=== PATIENT | female | born 1990 | race Caucasian/White ===

== ENCOUNTER 2022-05-09 12:47 | Inpatient (IN) ==
[2022-05-09] MEDS ORDERED: PANTOPRAZOLE BOLUS/DRIP 1 EACH IV STA (12:55)
[2022-05-09] MEDS ORDERED: PANTOprazole 80 MG in DEXTROSE 5% 100 ML IV ONE (12:55)
[2022-05-09] MEDS ORDERED: SODIUM CHLORIDE 0.9% 1000ML 1,000 ML IV ONE ×2 (12:55→14:15)
[2022-05-09 13:24] LABS: Hematocrit (blood only) 53.6 % (37.0-47.0); Hemoglobin 19.2 g/dl (12.0-16.0); Mean Corpuscular Hemoglobin 31.6 pg (25.0-34.0); Mean Corpuscular Hgb Conc 35.8 g/dL (32.0-36.0); Mean Corpuscular Volume 88.2 fL (80.0-100.0); Platelet Count 160 K/uL (130-400); RDW Standard Deviation 41.1 fL (36.4-46.3); Red Blood Count 6.08 M/uL (4.20-5.40); White Blood Count 17.57 K/ul (4.8-10.8)
--- NOTE | 2022-05-09 13:26 | Emergency Department Note ---
Impression & Plan Nausea & vomiting, Abdominal pain, GI bleed, Acute hepatitis, Coagulopathy, Dehydration ED Provider Note ED Provider Note NAME: MYRIAM MORALES AGE:31 SEX: Female : 1990 ARRIVES VIA: EMS INFORMANT: Patient ED PROVIDER(s): Candida Garcia DO CHIEF COMPLAINT: HPI: This is a 31-year-old female brought in by EMS after [facility]all[facility] party contacted them due to concern for recurrent vomiting in the patient as well as florecita temesis. Patient states she began having vomiting and abdominal pain yesterday which continued into today. Patient denies any prior history of GERD, PUD, or any other GI problems. No prior EGD. Patient denies any use of aspirin or NSAIDs. Patient states she is not drink alcohol in several days. She states she has felt dizzy and lightheaded but has not passed out. EMS reports they had established an IV and given her 4 mg of Zofran when patient suddenly removed the IV. Patient complained of left-sided abdominal pain. She was tachycardic for EMS and blood pressures were fluctuating however EMS reported patient would not lay still. Patient states she had dark blood with a bowel movement this morning. No recent melena. PAST MEDICAL HISTORY:See Below PAST SURGICAL HISTORY:See Below FAMILY HISTORY:See Below SOCIAL HISTORY:See Below HOME MEDICATIONS:See Below ALLERGIES:See Below VITALS:See Below PHYSICAL EXAMINATION: GENERAL: alert, unwell appearing, well nourished, moderate distress, non-toxic, tearful and holding emesis bag EYE EXAM: normal conjunctiva, PERRL and EOM's grossly intact OROPHARYNX: no exudate, no erythema, lips, buccal mucosa, and tongue normal and mucous membranes are dry, no blood in the posterior oropharynx NECK: supple, no nuchal rigidity, no adenopathy, non-tender LUNGS: Clear to auscultation. Normal chest wall mechanics, no w/r/r HEART: no murmurs, S1 normal and S2 normal ABDOMEN: abdomen soft, generalized discomfort with palpation, normo-active bowel sounds, no masses, no rebound or guarding. BACK: Back is symmetrical on inspection and there is no deformity, no midline tenderness, no CVA tenderness. SKIN: no rashes, petechiae, orbruising UPPER EXTREMITIES: upper extremities are grossly normal. FROM, nml pulses b/l. LOWER EXTREMITIES: No pitting edema. FROM, nml pulses b/l. NEURO EXAM: Normal sensorium, cranial nerves II-XII grossly intact, normal speech, no facial droop,nogross weakness of arms, no gross weakness of legs. Gross sensation intact. No ataxia. Vital Signs: reviewed and remarkable Differential Diagnosis: Differential diagnosis includes etiologies such as AVM, coagulopathy, colitis, inflammatory bowel disease, malignancy, Cira-Ontiveros tear, esophagitis, peptic ulcer disease, variceal bleed, gastritis, as well as others were entertained. MEDICAL DECISION MAKING: This is a 31-year-old female who presents emergency department via EMS due to concern for recurrent nausea and vomiting, hematemesis, and abdominal pain. Patient was afebrile although tachycardic, other vital signs stable. Labs drawn and sent, IV established, EKG performed interpreted by me at bedside, patient placed on telemetry. Patient started on IV fluids and given medication for nausea. Patient started on Protonix drip due to concern for hematemesis which is obvious in the emesis bag patient came in with. Patient sent for CT of the abdomen pelvis due to concern for abdominal pain with GI bleed. Patient denied any recent alcohol use although does have a history of alcohol abuse as well as substance abuse. Patient noted to have family elevated LFTs as well as an elevated INR. She was given 5 mg of IV vitamin K additionally. IV fluids continued and heart rate did improve. Patient updated on all results and need for additional inpatient treatment. Tylenol, lactic acid, and hepatitis panel added. It is unclear if her acute hepatitis is due to alcohol, substance abuse, or other undetermined pathology at this time. Consultation(s): 1445: Discussed with Dr. Loving, [facility] hospitalist service. ER Treatment Provided: See below 1420: Patient updated at bedside on results. She denies any history of liver problems or hepatitis. Denies any IV drug abuse. Patient states she did use coke earlier in the week. She states no alcohol since last weekend. No recent use of Tylenol. States she is not currently taking any medications. No other OTC meds, supplements, or vitamins. Diagnostics Interpreted By Me: -ECG: Normal sinus at 99, normal axis, normal QRS and QTc, no acute ST/T wave changes -Cardiac Monitoring: An order was placed for continuous cardiac monitoring. The monitor shows a rate of 112 with sinus tachycardia rhythm. -Laboratory studies: As stated above and show below. -Imaging studies: [] Triage Nursing Note Reviewed Prior/Outside Records Reviewed - Procedures: [] Critical Care: Critical care of 39 min performed to assess and manage high likelihood of life- threatening liver failure, involving labs and imaging performed with assessment to evaluate vomiting/GI bleed/abdominal pain diagnosis with frequent reassessment. This time includes bedside time, treatment discussions with patient/family/consultants, documentation time and excludes procedure time. Past Med/Surg History Medical History (Updated 05/10/22 @ 18:06 by Candida Garcia DO) Alcohol abuse Anxiety Bipolar 1 disorder Cocaine use Depression PCOS (polycystic ovarian syndrome) Post traumatic stress disorder (PTSD) Surgical History History of loop electrical excision procedure (LEEP) Family History Other Depression Social History Smoking Status: Current every day smoker Cigarettes Per Day: 10; Do You Dip or Chew Tobacco: No; Hx Alcohol Use: Yes Alcohol type: hard liquor Hx Substance Use: Yes Last Used Substance: Days (ago) Last Used Substance Other:: 05/02/22 Preferred Language: Venezuelan Communication Ability: Effective Principal Administrative Clerk Required: No Beliefs That Will Affect Care: None Current Living Situation: Family Current Living Situation Comment: lives with sister Feels Safe at Home: No Any Concerns about Your Family Situation: Yes Would You Like to Speak to Someone About Your Situation: Yes Safety Concerns: Afraid for Self Assistive Devices: None Allergies Allergies Allergy/AdvReac Type Severity Reaction Status Date / Time No Known Allergies Allergy Mild Unverified 05/09/22 14:38 BEE STINGS Allergy Mild UNKNOWN Uncoded 05/09/22 14:38 CODIENE AdvReac Mild NAUSEA Uncoded 05/09/22 14:38 Home Meds Home Medications Medication Instructions Recorded Confirmed No Known Home Medications 05/09/22 05/09/22 Results & Data (ED) Vital Signs Vital Signs - 24 hr 05/09/22 12:49 05/09/22 13:15 05/09/22 14:45 Temperature 37.2 C Temperature Source Axillary Pulse Rate 113 H 105 H Pulse Rate [Apical] 115 H Pulse Rhythm Regular Pulse Rhythm [Apical] Pulse Strength [Apical] Respiratory Rate 18 21 Respiratory Effort / Characteristics Non-Labored Spontaneous Non-Labored Spontaneous Respiratory Depth Normal Normal Respiratory Pattern Regular Blood Pressure 98/67 L Blood Pressure [Left Arm] 144/80 H Blood Pressure Mean 77 Blood Pressure Mean [Left Arm] 101 Pulse Oximetry 100 97 Oxygen Delivery Method Room Air Room Air Sepsis Recent Fever Within 48 Hours No Sepsis New/Unexplained Change in Mental Status No Sepsis Action Taken by Nursing Physician Notified 05/09/22 14:47 Temperature Temperature Source Pulse Rate Pulse Rate [Apical] 120 H Pulse Rhythm Pulse Rhythm [Apical] Regular Pulse Strength [Apical] Normal Respiratory Rate 17 Respiratory Effort / Characteristics Non-Labored Spontaneous Respiratory Depth Normal Respiratory Pattern Regular Blood Pressure Blood Pressure [Left Arm] 117/77 Blood Pressure Mean Blood Pressure Mean [Left Arm] 90 Pulse Oximetry 100 Oxygen Delivery Method Room Air Sepsis Recent Fever Within 48 Hours Sepsis New/Unexplained Change in Mental Status Sepsis Action Taken by Nursing Laboratory Data 05/09/22 13:01 05/09/22 13:01 Lab Results 05/09/22 05/09/22 05/09/22 Range/Units 13:01 13:01 13:01 WBC 17.57 H (4.8-10.8) K/ul RBC 6.08 H (4.20-5.40) M/uL Hgb 19.2 H (12.0-16.0) g/dl Hct 53.6 H (37.0-47.0) % MCV 88.2 (80.0-100.0) fL MCH 31.6 (25.0-34.0) pg MCHC 35.8 (32.0-36.0) g/dL RDW Std Deviation 41.1 (36.4-46.3) fL RDW Coeff of Jess 13.0 (11.5-14.5) % Plt Count 160 (130-400) K/uL MPV 11.0 (9.4-12.4) fL Immature Gran % (Auto) 0.5 % Neut % (Auto) 87.7 % Lymph % (Auto) 1.1 % Clare % (Auto) 1.2 % Eos % (Auto) 9.0 % Baso % (Auto) 0.5 % Neut # (Auto) 15.41 H (1.40-6.50) K/uL Lymph # (Auto) 0.20 L (1.2-3.4) K/uL Clare # (Auto) 0.21 (0.11-0.59) K/uL Eos # (Auto) 1.58 H (0-0.50) K/uL Baso # (Auto) 0.08 (0-0.2) K/uL Immature Gran # (Auto) 0.09 (0.01-0.20) K/uL Toxic Vacuolation 1+ Polychromasia 1+ Echinocytes 3+ PT 38.6 H (9.0-12.0) Seconds INR 3.9 H (0.9-1.1) Sodium 136 (136-145) mmol/L Potassium 4.0 (3.5-5.1) mmol/L Chloride 99 (98-107) mmol/L Carbon Dioxide 20 L (21-32) mmol/L Anion Gap 17 H (3-11) BUN 18 (6-23) mg/dl Creatinine 0.96 (0.6-1.2) mg/dl Est Cr Clr Drug Dosing 109.0 ml/min Est GFR ( Amer) 91.3 ml/min Est GFR (Non-Af Amer) 78.8 ml/min BUN/Creatinine Ratio 18.8 (10-20) Glucose 107 H (70-99(Fasting)) mg/dl Lactate (0.4-2.0) mmol/L Calcium 9.8 (8.5-10.1) mg/dl Magnesium 2.1 (1.7-2.4) mg/dl Total Bilirubin 6.8 H (0.2-1.0) mg/dl AST 9935 H (13-39) U/L ALT > 2500 H (7-52) U/L Alkaline Phosphatase 146 H (34-104) U/L Troponin I High Sens 20.6 H (0-14) pg/ml Total Protein 8.1 (6.0-8.3) gm/dl Albumin 4.8 (3.4-5.0) gm/dl Globulin 3.3 (2.5-4.0) gm/dl Albumin/Globulin Ratio 1.5 (0.9-2) Lipase 35 (11-82) U/L Procalcitonin (0-0.5) ng/ml HCG, Qual (Negative) Acetaminophen (10-30) ug/ml Ethyl Alcohol mg/dL (<10.0) mg/dl SARS-CoV-2, RNA, NAAT (NEGATIVE) Blood Type Antibody Screen 05/09/22 05/09/22 05/09/22 Range/Units 13:01 13:24 14:13 WBC (4.8-10.8) K/ul RBC (4.20-5.40) M/uL Hgb (12.0-16.0) g/dl Hct (37.0-47.0) % MCV (80.0-100.0) fL MCH (25.0-34.0) pg MCHC (32.0-36.0) g/dL RDW Std Deviation (36.4-46.3) fL RDW Coeff of Jess (11.5-14.5) % Plt Count (130-400) K/uL MPV (9.4-12.4) fL Immature Gran % (Auto) % Neut % (Auto) % Lymph % (Auto) % Clare % (Auto) % Eos % (Auto) % Baso % (Auto) % Neut # (Auto) (1.40-6.50) K/uL Lymph # (Auto) (1.2-3.4) K/uL Clare # (Auto) (0.11-0.59) K/uL Eos # (Auto) (0-0.50) K/uL Baso # (Auto) (0-0.2) K/uL Immature Gran # (Auto) (0.01-0.20) K/uL Toxic Vacuolation Polychromasia Echinocytes PT (9.0-12.0) Seconds INR (0.9-1.1) Sodium (136-145) mmol/L Potassium (3.5-5.1) mmol/L Chloride (98-107) mmol/L Carbon Dioxide (21-32) mmol/L Anion Gap (3-11) BUN (6-23) mg/dl Creatinine (0.6-1.2) mg/dl Est Cr Clr Drug Dosing ml/min Est GFR ( Amer) ml/min Est GFR (Non-Af Amer) ml/min BUN/Creatinine Ratio (10-20) Glucose (70-99(Fasting)) mg/dl Lactate 5.4 H* (0.4-2.0) mmol/L Calcium (8.5-10.1) mg/dl Magnesium (1.7-2.4) mg/dl Total Bilirubin (0.2-1.0) mg/dl AST (13-39) U/L ALT (7-52) U/L Alkaline Phosphatase (34-104) U/L Troponin I High Sens (0-14) pg/ml Total Protein (6.0-8.3) gm/dl Albumin (3.4-5.0) gm/dl Globulin (2.5-4.0) gm/dl Albumin/Globulin Ratio (0.9-2) Lipase (11-82) U/L Procalcitonin (0-0.5) ng/ml HCG, Qual Negative (Negative) Acetaminophen (10-30) ug/ml Ethyl Alcohol mg/dL (<10.0) mg/dl SARS-CoV-2, RNA, NAAT (NEGATIVE) Blood Type Cancelled Antibody Screen Cancelled 05/09/22 05/09/22 05/09/22 Range/Units 14:13 14:13 14:14 WBC (4.8-10.8) K/ul RBC (4.20-5.40) M/uL Hgb (12.0-16.0) g/dl Hct (37.0-47.0) % MCV (80.0-100.0) fL MCH (25.0-34.0) pg MCHC (32.0-36.0) g/dL RDW Std Deviation (36.4-46.3) fL RDW Coeff of Jess (11.5-14.5) % Plt Count (130-400) K/uL MPV (9.4-12.4) fL Immature Gran % (Auto) % Neut % (Auto) % Lymph % (Auto) % Clare % (Auto) % Eos % (Auto) % Baso % (Auto) % Neut # (Auto) (1.40-6.50) K/uL Lymph # (Auto) (1.2-3.4) K/uL Clare # (Auto) (0.11-0.59) K/uL Eos # (Auto) (0-0.50) K/uL Baso # (Auto) (0-0.2) K/uL Immature Gran # (Auto) (0.01-0.20) K/uL Toxic Vacuolation Polychromasia Echinocytes PT (9.0-12.0) Seconds INR (0.9-1.1) Sodium (136-145) mmol/L Potassium (3.5-5.1) mmol/L Chloride (98-107) mmol/L Carbon Dioxide (21-32) mmol/L Anion Gap (3-11) BUN (6-23) mg/dl Creatinine (0.6-1.2) mg/dl Est Cr Clr Drug Dosing ml/min Est GFR ( Amer) ml/min Est GFR (Non-Af Amer) ml/min BUN/Creatinine Ratio (10-20) Glucose (70-99(Fasting)) mg/dl Lactate (0.4-2.0) mmol/L Calcium (8.5-10.1) mg/dl Magnesium (1.7-2.4) mg/dl Total Bilirubin (0.2-1.0) mg/dl AST (13-39) U/L ALT (7-52) U/L Alkaline Phosphatase (34-104) U/L Troponin I High Sens (0-14) pg/ml Total Protein (6.0-8.3) gm/dl Albumin (3.4-5.0) gm/dl Globulin (2.5-4.0) gm/dl Albumin/Globulin Ratio (0.9-2) Lipase (11-82) U/L Procalcitonin 16.18 H (0-0.5) ng/ml HCG, Qual (Negative) Acetaminophen (10-30) ug/ml Ethyl Alcohol mg/dL < 10.0 (<10.0) mg/dl SARS-CoV-2, RNA, NAAT (NEGATIVE) Blood Type A Positive Antibody Screen NEGATIVE 05/09/22 05/09/22 Range/Units 14:15 15:17 WBC (4.8-10.8) K/ul RBC (4.20-5.40) M/uL Hgb (12.0-16.0) g/dl Hct (37.0-47.0) % MCV (80.0-100.0) fL MCH (25.0-34.0) pg MCHC (32.0-36.0) g/dL RDW Std Deviation (36.4-46.3) fL RDW Coeff of Jess (11.5-14.5) % Plt Count (130-400) K/uL MPV (9.4-12.4) fL Immature Gran % (Auto) % Neut % (Auto) % Lymph % (Auto) % Clare % (Auto) % Eos % (Auto) % Baso % (Auto) % Neut # (Auto) (1.40-6.50) K/uL Lymph # (Auto) (1.2-3.4) K/uL Clare # (Auto) (0.11-0.59) K/uL Eos # (Auto) (0-0.50) K/uL Baso # (Auto) (0-0.2) K/uL Immature Gran # (Auto) (0.01-0.20) K/uL Toxic Vacuolation Polychromasia Echinocytes PT (9.0-12.0) Seconds INR (0.9-1.1) Sodium (136-145) mmol/L Potassium (3.5-5.1) mmol/L Chloride (98-107) mmol/L Carbon Dioxide (21-32) mmol/L Anion Gap (3-11) BUN (6-23) mg/dl Creatinine (0.6-1.2) mg/dl Est Cr Clr Drug Dosing ml/min Est GFR ( Amer) ml/min Est GFR (Non-Af Amer) ml/min BUN/Creatinine Ratio (10-20) Glucose (70-99(Fasting)) mg/dl Lactate (0.4-2.0) mmol/L Calcium (8.5-10.1) mg/dl Magnesium (1.7-2.4) mg/dl Total Bilirubin (0.2-1.0) mg/dl AST (13-39) U/L ALT (7-52) U/L Alkaline Phosphatase (34-104) U/L Troponin I High Sens (0-14) pg/ml Total Protein (6.0-8.3) gm/dl Albumin (3.4-5.0) gm/dl Globulin (2.5-4.0) gm/dl Albumin/Globulin Ratio (0.9-2) Lipase (11-82) U/L Procalcitonin (0-0.5) ng/ml HCG, Qual (Negative) Acetaminophen 17 (10-30) ug/ml Ethyl Alcohol mg/dL (<10.0) mg/dl SARS-CoV-2, RNA, NAAT NEGATIVE (NEGATIVE) Blood Type Antibody Screen Administered Medications Pantoprazole Sodium 40 mg/ (Dextrose) 100 mls @ 20 mls/hr IV Q5H [facility] Stop: 06/08/22 13:14 Last Admin: 05/10/22 14:59 Dose: 8 mg/hr, 20 mls/hr Documented By: Infusion: 05/10/22 14:59 Dose: 8 mg/hr, 20 mls/hr Documented By: MARIA VICTORIAS Admin: 05/10/22 11:02 Dose: 8 mg/hr, 20 mls/hr Documented By: Infusion: 05/10/22 10:02 Dose: 8 mg/hr, 20 mls/hr Documented By: MARIA VICTORIAS Admin: 05/10/22 05:02 Dose: 8 mg/hr, 20 mls/hr Documented By: Infusion: 05/10/22 04:27 Dose: 8 mg/hr, 20 mls/hr Documented By: JuanitoT Admin: 05/09/22 23:27 Dose: 8 mg/hr, 20 mls/hr Documented By: JuanitoT Infusion: 05/09/22 23:27 Dose: 8 mg/hr, 20 mls/hr Documented By: JuanitoT Admin: 05/09/22 20:11 Dose: 8 mg/hr, 20 mls/hr Documented By: Infusion: 05/09/22 19:05 Dose: 0 mg/hr, 0 mls/hr Documented By: Admin: 05/09/22 14:05 Dose: 8 mg/hr, 20 mls/hr Documented By: Piperacillin Sod/Tazobactam (Sod 4.5 gm/ Dextrose) 120 mls @ 30 mls/hr IV Q8H [facility]; Protocol Stop: 05/11/22 17:14 Last Admin: 05/10/22 16:51 Dose: 28.8 mls/hr Documented By: Infusion: 05/10/22 15:46 Dose: 0 mls/hr Documented By: MARIA VICTORIAS Admin: 05/10/22 10:00 Dose: 28.8 mls/hr Documented By: Infusion: 05/10/22 06:13 Dose: 0 mls/hr Documented By: Admin: 05/10/22 01:56 Dose: 30 mls/hr Documented By: Infusion: 05/09/22 21:45 Dose: 0 mls/hr Documented By: Admin: 05/09/22 17:28 Dose: 28.8 mls/hr Documented By: KELSEY Potassium Chloride/Sodium Chloride (Normal Saline W/20 Meq Kcl) 20 meq in 1,000 mls @ 125 mls/hr IV .Q8H JULIETTE; Protocol Stop: 06/09/22 07:59 Last Admin: 05/10/22 16:52 Dose: 125 mls/hr Documented By: Infusion: 05/10/22 16:52 Dose: 125 mls/hr Documented By: Admin: 05/10/22 09:00 Dose: 125 mls/hr Documented By: LESLIE Ondansetron HCl (Ondansetron Inj 2 Mg/Ml 2 Ml Vial) 4 mg IV Q6H PRN PRN Reason: Nausea Stop: 06/08/22 19:03 Last Admin: 05/10/22 07:35 Dose: 4 mg Documented By: Admin: 05/09/22 22:42 Dose: 4 mg Documented By: RAMONA Discontinued Medications Acetylcysteine (Acetylcysteine Iv 21 Hr Regimen (>40kg)) 1 each IV NOW STA; Protocol Stop: 05/09/22 19:33 Last Admin: 05/10/22 01:57 Dose: Not Given Documented By: RAMONA Sodium Chloride (Nss 1000ml) 1,000 mls @ 999 mls/hr IV .Q1H1M ONE Stop: 05/09/22 13:55 Last Infusion: 05/09/22 14:05 Dose: 0 mls/hr Documented By: Admin: 05/09/22 13:04 Dose: 999 mls/hr Documented By: KELSEY Pantoprazole Sodium (Protonix Bolus/Drip) 0 mls @ 1 mls/hr IV ONE STA Stop: 05/09/22 12:56 Last Admin: 05/09/22 14:04 Dose: Not Given Documented By: KELSEY Pantoprazole Sodium 80 mg/ (Dextrose) 120 mls @ 400 mls/hr IV NOW ONE Stop: 05/09/22 13:12 Last Infusion: 05/09/22 13:48 Dose: 0 mls/hr Documented By: Admin: 05/09/22 13:26 Dose: 400 mls/hr Documented By: Phytonadione 5 mg/ Dextrose 50.5 mls @ 101 mls/hr IV ONE ONE Stop: 05/09/22 14:34 Last Infusion: 05/09/22 15:23 Dose: 0 mls/hr Documented By: Admin: 05/09/22 14:42 Dose: 101 mls/hr Documented By: KELSEY Sodium Chloride (Nss 1000ml) 1,000 mls @ 999 mls/hr IV .Q1H1M ONE Stop: 05/09/22 15:15 Last Infusion: 05/09/22 16:28 Dose: 0 mls/hr Documented By: Admin: 05/09/22 15:20 Dose: 999 mls/hr Documented By: Cefepime HCl (Maxipime) 2,000 mg in 20 mls @ 5 mls/min IV NOW STA; Protocol Stop: 05/09/22 15:23 Last Admin: 05/09/22 15:48 Dose: Not Given Documented By: KELSEY Dextrose/Sodium Chloride (D5w And Nss) 1,000 mls @ 70 mls/hr IV .[id number] JULITETE Stop: 06/08/22 19:03 Last Infusion: 05/10/22 09:00 Dose: 0 mls/hr Documented By: Admin: 05/09/22 20:59 Dose: 70 mls/hr Documented By: RAMONA Acetylcysteine 10,000 mg/ (Dextrose) 1,050 mls @ 62.5 mls/hr IV ONCE ONE Stop: 05/10/22 17:47 Last Admin: 05/10/22 03:58 Dose: 62.5 mls/hr Documented By: RAMONA Acetylcysteine 15,000 mg/ (Dextrose) 275 mls @ 200 mls/hr IV ONCE ONE Stop: 05/09/22 21:37 Last Infusion: 05/09/22 23:12 Dose: 0 mls/hr Documented By: Admin: 05/09/22 20:59 Dose: 200 mls/hr Documented By: RAMONA Acetylcysteine 5,000 mg/ (Dextrose) 525 mls @ 125 mls/hr IV ONCE ONE Stop: 05/10/22 01:26 Last Infusion: 05/10/22 04:00 Dose: 0 mls/hr Documented By: Admin: 05/09/22 23:12 Dose: 125 mls/hr Documented By: RAMONA Vancomycin HCl 2,000 mg/ (Sodium Chloride) 540 mls @ 200 mls/hr IV NOW ONE; Protocol Stop: 05/09/22 23:41 Last Infusion: 05/10/22 01:04 Dose: 0 mls/hr Documented By: Admin: 05/09/22 20:59 Dose: 200 mls/hr Documented By: RAMONA Vancomycin HCl 1,250 mg/ (Sodium Chloride) 275 mls @ 200 mls/hr IV Q12H [facility]ULI[facility]TE; Protocol Stop: 05/10/22 12:00 Last Infusion: 05/10/22 11:22 Dose: 0 mls/hr Documented By: Admin: 05/10/22 09:18 Dose: 200 mls/hr Documented By: LESLIE Ioversol (Optiray 350 100ml) 94 ml IV ONCE ONE Stop: 05/09/22 13:53 Last Admin: 05/09/22 13:53 Dose: 94 ml Documented By: ISHMAEL Metoclopramide HCl (Metoclopramide Hcl Inj 5 Mg/Ml 2 Ml Vial) 5 mg IV ONE ONE Stop: 05/09/22 19:46 Last Admin: 05/09/22 19:35 Dose: 5 mg Documented By: CLARE Metoclopramide HCl (Metoclopramide Hcl Inj 5 Mg/Ml 2 Ml Vial) 5 mg IV ONE ONE Stop: 05/09/22 23:22 Last Admin: 05/09/22 23:27 Dose: 5 mg Documented By: RAMONA Ondansetron HCl (Ondansetron Inj 2 Mg/Ml 2 Ml Vial) 4 mg IV NOW STA Stop: 05/09/22 13:36 Last Admin: 05/09/22 13:43 Dose: 4 mg Documented By: Ondansetron HCl (Ondansetron Inj 2 Mg/Ml 2 Ml Vial) Confirm Administered Dose 4 mg .ROUTE .STK-MED ONE Stop: 05/09/22 13:36 Last Admin: 05/09/22 13:44 Dose: Not Given Documented By: KELSEY Ondansetron HCl (Ondansetron Inj 2 Mg/Ml 2 Ml Vial) Confirm Administered Dose 4 mg .ROUTE .K-MED ONE Stop: 05/09/22 16:43 Last Admin: 05/09/22 16:45 Dose: 4 mg Documented By: KELSEY Imaging Data Radiologist's Impression: Abdomen/Pelvis CT 05/09/22 12:55 CT OF THE ABDOMEN AND PELVIS WITH CONTRAST CLINICAL HISTORY: Gi bleed, LUQ pain COMPARISON STUDY: None. TECHNIQUE: Following IV administration of 94 mL of Optiray, axial images of the abdomen and pelvis were obtained from the lung bases to the proximal femurs. Images were reviewed in the axial, sagittal, and coronal planes. IV contrast was administered without complication. Automated exposure control was utilized for the study. A dose lowering technique was utilized adhering to the principles of ALARA. CT DOSE: 1020.55 mGy.cm FINDINGS: Lung bases are unremarkable. No pneumatosis, free air or portal venous gas is present. There is hepatic steatosis. No biliary or pancreatic ductal dilatation is present. Spleen, adrenal glands, kidneys and pancreas are normal. There is no peripancreatic or pericholecystic infiltration. There is no hydronephrosis. Subcentimeter left adrenal nodule is likely benign. The caliber and wall thickness of small and large bowel are normal. There is no evidence for a bowel obstruction. The appendix is normal. No intraluminal contrast is identified to suggest active GI bleed during this study. Intrauterine device is in place. Ovaries are unremarkable by CT. There is no lymphadenopathy. There is no ascites. There are no acute fractures. IMPRESSION: 1. No acute process within the abdomen or pelvis. 2. Hepatic steatosis. 3. Normal appendix. No bowel obstruction. No bowel wall thickening. ACT 112: Negative or not required by law. Electronically signed by: Kieran Ewing M.D. 05/09/2022 2:19 PM Discharge Plan Visit Data Chief Complaint: Vomiting Stated Complaint: VOMITING HEMATEMESIS ED Provider: Candida Garcia Discharge Problem: Nausea & vomiting, Abdominal pain, GI bleed, Acute hepatitis, Coagulopathy, Dehydration Patient Disposition: Admitted As Inpatient Discharge Instructions Interventions: ED Discharge Assessment Last Done: 05/09/22 19:04
[2022-05-09 13:27] LABS: Pregnancy Test, Serum Negative (Negative)
[2022-05-09 13:28] LABS: Anion Gap 17 (3-11); BUN Creatinine Ratio 18.8 (10-20); Blood Urea Nitrogen 18 mg/dl (6-23); Calcium 9.8 mg/dl (8.5-10.1); Carbon Dioxide 20 mmol/L (21-32); Chloride 99 mmol/L (98-107); Est GFR (African American) 91.3 ml/min; Est GFR (Non-African American) 78.8 ml/min; Glucose 107 mg/dl (70-99(Fasting)); Sodium 136 mmol/L (136-145)
[2022-05-09 13:30] LABS: Albumin Globulin Ratio 1.5 (0.9-2); Albumin Level 4.8 gm/dl (3.4-5.0); Alkaline Phosphatase 146 U/L (34-104); Bilirubin,Total 6.8 mg/dl (0.2-1.0); Globulin 3.3 gm/dl (2.5-4.0); Lipase 35 U/L (11-82); Magnesium 2.1 mg/dl (1.7-2.4); Total Protein 8.1 gm/dl (6.0-8.3)
[2022-05-09 13:34] LABS: Troponin I High Sensitivity 20.6 pg/ml (0-14)
[2022-05-09] MEDS ORDERED: ONDANSETRON INJ 2 MG/ML 2 ML VIAL ONE ×2 (13:35→16:42)
[2022-05-09] MEDS ORDERED: ONDANSETRON INJ 2 MG/ML 2 ML VIAL IV STA (13:35)
[2022-05-09 13:45] LABS: INR 3.9 (0.9-1.1); Prothrombin Time 38.6 Seconds (9.0-12.0)
[2022-05-09 13:49] LABS: Aspartate Aminotransferase 9935 U/L (13-39)
[2022-05-09 13:50] LABS: Alanine Aminotransferase > 2500 U/L (7-52)
[2022-05-09] MEDS ORDERED: OPTIRAY 350 100ml IV ONE (13:52)
[2022-05-09 13:53] LABS: Basophils # (auto) 0.08 K/uL (0-0.2); Basophils % (auto) 0.5 %; Echinocytes 3+; Eosinophils # (auto) 1.58 K/uL (0-0.50); Immature Granulocytes # (auto) 0.09 K/uL (0.01-0.20); Immature Granulocytes % (auto) 0.5 %; Lymphocytes % (auto) 1.1 %; Monocytes # (auto) 0.21 K/uL (0.11-0.59); Monocytes % (auto) 1.2 %; Neutrophils # (auto) 15.41 K/uL (1.40-6.50); Neutrophils % (auto) 87.7 %; Polychromasia 1+; Toxic Vacuolation 1+
[2022-05-09] MEDS ORDERED: PHYTONADIONE 5 MG in DEXTROSE 5% 50 ML IV ONE (14:05)
[2022-05-09] MEDS: PANTOprazole 40 MG in DEXTROSE 5% 100 ML IV SCH ×3 (14:05→23:27)
--- NOTE | 2022-05-09 14:22 | CT Scan Report ---
CT OF THE ABDOMEN AND PELVIS WITH CONTRAST CLINICAL HISTORY: Gi bleed, LUQ pain COMPARISON STUDY: None. TECHNIQUE: Following IV administration of 94 mL of Optiray, axial images of the abdomen and pelvis we re obtained from the lung bases to the proximal femurs. Images were reviewed in the axial, sagittal, and coronal planes. IV contrast was administered without complication. Automated exposure control wa s utilized for the study. A dose lowering technique was utilized adhering to the principles of ALARA . CT DOSE: 1020.55 mGy.cm FINDINGS: Lung bases are unremarkable. No pneumatosis, free air or portal venous gas is present. Ther e is hepatic steatosis. No biliary or pancreatic ductal dilatation is present. Spleen, adrenal glands , kidneys and pancreas are normal. There is no peripancreatic or pericholecystic infiltration. There is no hydronephrosis. Subcentimeter left adrenal nodule is likely benign. The caliber and wall thickn ess of small and large bowel are normal. There is no evidence for a bowel obstruction. The appendix i s normal. No intraluminal contrast is identified to suggest active GI bleed during this study. Intrau terine device is in place. Ovaries are unremarkable by CT. There is no lymphadenopathy. There is no a scites. There are no acute fractures. IMPRESSION: 1. No acute process within the abdomen or pelvis. 2. Hepatic steatosis. 3. Normal appendix. No bowel obstruction. No bowel wall thickening. ACT 112: Negative or not required by law. Electronically signed by: Kieran Ewing M.D. 05/09/2022 2:19 PM
[2022-05-09] MEDS ORDERED: CEFEPIME 2,000 MG/20 ML VIAL IV STA (15:20)
[2022-05-09 17:11] LABS: Appearance Urine Clear (Clear); Bacteria Urine Automated Negative (Negative); Blood Urine 2+ (Negative); Color Urine Dark Yellow; Epithelial Cell Urine Auto >30 /lpf (0-5); Glucose Urine UA Negative (Negative); Ketones Urine Trace (Negative); Leukocyte Esterase Urine Trace (Negative); Nitrite Urine Negative (Negative); Protein Urine 3+ (Negative); Specific Gravity Urine > 1.045 (1.000-1.030); Urobilinogen Urine Negative (Negative); pH Urine 6.5 (4.5-7.5)
[2022-05-09 17:16] LABS: Bilirubin Urine 1+ (Negative)
[2022-05-09] MEDS: PIPERACILLIN/TAZOBACTAM 4.5 GM in DEXTROSE 5% 100 ML IV SCH (17:28)
[2022-05-09 17:34] LABS: Amphetamines+Metham, Urine Neg (Neg); Barbiturates, Urine Neg (Neg); Benzodiazepine, Urine Neg (Neg); Cocaine, Urine Pos (Neg); MDMA (Ecstacy), Urine Neg (Neg); Methadone, Urine Neg (Neg); Opiate, Urine Neg (Neg); Phencyclidine, Urine Neg (Neg)
--- NOTE | 2022-05-09 17:35 | Ultrasound Report ---
US duplex portal hepatic veins CLINICAL HISTORY: rule out thrombosis COMPARISON STUDY: CT of the abdomen and pelvis performed earlier today. TECHNIQUE: Color and duplex Doppler sonography of the major hepatic vessels was performed. FINDINGS: The main portal vein is patent with appropriately directed flow. The right and left portal veins are also patent. Hepatic veins are patent with appropriate phasicity. Splenic vein is patent. H epatic artery is patent. IMPRESSION: Patent major hepatic vessels with appropriately directed flow. ACT 112: Negative or not required by law. Electronically signed by: Kieran Ewing M.D. 05/09/2022 5:34 PM
[2022-05-09 17:50] LABS: Cast Urine Automated 0 /lpf (0-5)
[2022-05-09] MEDS ORDERED: VANCOMYCIN CONSULT ACTIVE PRN (19:04)
[2022-05-09] MEDS ORDERED: D5W AND NSS 1,000 ML IV SCH (19:04)
[2022-05-09] MEDS ORDERED: AcetylCYSTEINE IV 21 HR REGIMEN (>40KG) IV STA (19:32)
[2022-05-09] MEDS ORDERED: METOCLOPRAMIDE HCL INJ 5 MG/ML 2 ML VIAL IV ONE ×2 (19:45→23:21)
[2022-05-09] MEDS ORDERED: AcetylCYSTEINE 5,000 MG in DEXTROSE 5% 500 ML IV ONE ×2 (20:15→21:15)
[2022-05-09] MEDS ORDERED: AcetylCYSTEINE 15,000 MG in DEXTROSE 5% 200 ML IV ONE (20:15)
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
[2022-05-09] MEDS ORDERED: VANCOMYCIN HCL 2,000 MG in SODIUM CHLORIDE 0.9% 500 ML IV ONE (21:00)
[2022-05-09] MEDS ORDERED: FLUARIX QUADRIVALENT 0.5 ML SYR IM ONE (21:19)
[2022-05-09 21:54] LABS: Hematocrit (blood only) 48.6 % (37.0-47.0); Hemoglobin 16.9 g/dl (12.0-16.0); Mean Corpuscular Hemoglobin 31.1 pg (25.0-34.0); Mean Corpuscular Hgb Conc 34.8 g/dL (32.0-36.0); Mean Corpuscular Volume 89.3 fL (80.0-100.0); Platelet Count 147 K/uL (130-400); RDW Coefficient of Variation 13.2 % (11.5-14.5); RDW Standard Deviation 42.5 fL (36.4-46.3); Red Blood Count 5.44 M/uL (4.20-5.40); White Blood Count 17.41 K/ul (4.8-10.8)
[2022-05-09 22:01] LABS: Anion Gap 13 (3-11); BUN Creatinine Ratio 22.9 (10-20); Blood Urea Nitrogen 19 mg/dl (6-23); Calcium 8.7 mg/dl (8.5-10.1); Carbon Dioxide 22 mmol/L (21-32); Chloride 102 mmol/L (98-107); Creatinine Clr Calc Pharmacy 127.3 ml/min; Est GFR (African American) 108.9 ml/min; Glucose 104 mg/dl (70-99(Fasting)); Potassium 3.9 mmol/L (3.5-5.1); Sodium 137 mmol/L (136-145)
[2022-05-09 22:08] LABS: Troponin I High Sensitivity 15.1 pg/ml (0-14)
[2022-05-09 22:33] LABS: Alanine Aminotransferase > 2500 U/L (7-52); Albumin Globulin Ratio 1.5 (0.9-2); Alkaline Phosphatase 137 U/L (34-104); Aspartate Aminotransferase 9790 U/L (13-39); Bilirubin,Total 6.4 mg/dl (0.2-1.0); Creatine Kinase 85 U/L (26-192); Globulin 2.7 gm/dl (2.5-4.0); Total Protein 6.7 gm/dl (6.0-8.3)
[2022-05-09] MEDS: ONDANSETRON INJ 2 MG/ML 2 ML VIAL IV PRN (22:42)
[2022-05-09 23:11] LABS: Basophils # (auto) 0.03 K/uL (0-0.2); Basophils % (auto) 0.2 %; Immature Granulocytes % (auto) 0.6 %; Lymphocytes # (auto) 0.32 K/uL (1.2-3.4); Lymphocytes % (auto) 1.8 %; Monocytes # (auto) 0.25 K/uL (0.11-0.59); Monocytes % (auto) 1.4 %; Neutrophils # (auto) 16.71 K/uL (1.40-6.50)
[2022-05-10] MEDS ORDERED: AcetylCYSTEINE 10,000 MG in DEXTROSE 5% 1,000 ML IV ONE (01:00)
[2022-05-10 01:44] LABS: Anion Gap 13 (3-11); Blood Urea Nitrogen 17 mg/dl (6-23); Calcium 8.1 mg/dl (8.5-10.1); Carbon Dioxide 23 mmol/L (21-32); Chloride 102 mmol/L (98-107); Creatinine Clr Calc Pharmacy 130.4 ml/min; Est GFR (African American) 112.2 ml/min; Est GFR (Non-African American) 96.8 ml/min; Glucose 168 mg/dl (70-99(Fasting)); Potassium 3.4 mmol/L (3.5-5.1); Sodium 138 mmol/L (136-145)
[2022-05-10] MEDS: PIPERACILLIN/TAZOBACTAM 4.5 GM in DEXTROSE 5% 100 ML IV SCH ×3 (01:56→16:51)
[2022-05-10 02:00] LABS: Albumin Globulin Ratio 1.7 (0.9-2); Albumin Level 3.8 gm/dl (3.4-5.0); Alkaline Phosphatase 102 U/L (34-104); Aspartate Aminotransferase 8290 U/L (13-39); Bilirubin,Total 6.2 mg/dl (0.2-1.0); Globulin 2.2 gm/dl (2.5-4.0)
[2022-05-10 02:01] LABS: Hematocrit (blood only) 44.7 % (37.0-47.0); Hemoglobin 15.8 g/dl (12.0-16.0); Mean Corpuscular Hemoglobin 31.7 pg (25.0-34.0); Mean Corpuscular Hgb Conc 35.3 g/dL (32.0-36.0); Mean Corpuscular Volume 89.8 fL (80.0-100.0); Mean Platelet Volume 10.9 fL (9.4-12.4); Platelet Count 130 K/uL (130-400); RDW Standard Deviation 42.1 fL (36.4-46.3); Red Blood Count 4.98 M/uL (4.20-5.40); White Blood Count 15.51 K/ul (4.8-10.8)
[2022-05-10 02:02] LABS: Basophils # (auto) 0.03 K/uL (0-0.2); Basophils % (auto) 0.2 %; Echinocytes 2+; Immature Granulocytes # (auto) 0.07 K/uL (0.01-0.20); Immature Granulocytes % (auto) 0.5 %; Lymphocytes # (auto) 0.29 K/uL (1.2-3.4); Lymphocytes % (auto) 1.9 %; Monocytes # (auto) 0.23 K/uL (0.11-0.59); Monocytes % (auto) 1.5 %; Neutrophils # (auto) 14.89 K/uL (1.40-6.50); Neutrophils % (auto) 95.9 %; Toxic Vacuolation 1+
[2022-05-10 03:55] LABS: Alanine Aminotransferase > 2500 U/L (7-52)
[2022-05-10] MEDS: PANTOprazole 40 MG in DEXTROSE 5% 100 ML IV SCH ×5 (05:02→23:52)
[2022-05-10] MEDS: ONDANSETRON INJ 2 MG/ML 2 ML VIAL IV PRN (07:35)
--- NOTE | 2022-05-10 07:37 | Electrocardiogram Report ---
Test Reason : Blood Pressure : / mmHG Vent. Rate : 099 BPM Atrial Rate : 099 BPM P-R Int : 126 ms QRS Dur : 070 ms QT Int : 346 ms P-R-T Axes : 079 065 037 degrees QTc Int : 444 ms Normal sinus rhythm Normal ECG No previous ECGs available Confirmed by Enrique Hamilton ([id number]) on 05/10/2022 7:37:29 AM Referred By: REFERRED SELF Confirmed By:Wily Hamilton
--- NOTE | 2022-05-10 08:33 | XRay Report ---
XR chest 1V portable HISTORY: Cough. r/o Pneumonia COMPARISON: Chest 11/08/2008. FINDINGS: No pneumothorax. No pleural effusions. The heart is normal in size. No focal lung consolida tions to suggest a pneumonia. No evidence for pulmonary edema. IMPRESSION: No acute process. ACT 112: Negative or not required by law. Electronically signed by: Isaac Easton M.D. 05/10/2022 8:31 AM
[2022-05-10 08:48] LABS: INR 2.9 (0.9-1.1); Prothrombin Time 29.6 Seconds (9.0-12.0)
[2022-05-10] MEDS: NSS + 20MEQ KCL 20 MEQ/1,000 ML BAG IV SCH ×3 (09:00→23:52)
[2022-05-10] MEDS ORDERED: VANCOMYCIN HCL 1,250 MG in SODIUM CHLORIDE 0.9% 250 ML IV SCH (09:00)
--- NOTE | 2022-05-10 10:37 | Pharmacy Report ---
Pharmacy PK ABX Note - Date of Service May 10, 2022 - Assessment and Plan Assessment 31 year old F receiving vancomcyin/zosyn for empiric treatment. Pertinent microbiologic data includes: Blood cultures pending. Pt w/ significantly elevated liver enzymes, INR. Leukocytosis downtrending. Lactate 5.1. Procal 16. Plan Vancomycin * Loading dose: 2000 mg IV x 1 * Maintenance dose: 1500 mg IV every 12 hours * Regimen is predicted to achieve target AUC/LILIAN of 400-600 mg/L.hr * Random level ordered fro 320 AM Pharmacy will continue to follow and will adjust dose/frequency as necessary. Thank you. Pharmacy has transitioned to AUC monitoring for vancomycin. AUC/LILIAN is the preferred PK/PD target and is associated with decreased risk of nephrotoxicity compared to traditional trough targets.
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
--- NOTE | 2022-05-10 12:41 | Gastrointestinal Consultation ---
Date of Consultation May 10, 2022 Assessment & Plan (1) Alcohol abuse: (2) Alcoholic hepatitis: Plan ETOH hepatitis: TORI is 96, she does not meet [facility] [place] criteria for liver failure at this time but should monitor and if she does would need to be transferred to a tertiary center that performs liver transplants. Recs: --hold off on steroids for now given bleeding prior to admission, may consider them later in hospitalization if she does not show improvement and does not show signs of bleeding (currently no bleeding today) --supportive care, trend LFTs, IVFs --strict ETOH cessation, consider ETOH rehab --protonix 40 mg daily --agree with psych eval to get her back on her medications Thank you for allowing me to participate in the care of this patient. History of Present Illness Attending Physician: Wilmer Hidalgo MD History of Present Illness 31 y/o F with hx of Bipolar, depression, anxiety, PCOS, ETOH abuse, cocaine use came to the ER with 2 days hx of bloody vomiting, blood in the stool and abd pains, found to have severe hepatitis on labs. She drank a whole bottle of Anthony Dereck last weekend on 05/02 and used cocaine, has not been eating or drinking all week it appears, not on her psych meds. LFTs show severe transaminitis in a larger than 2:1 ratio favoring alcoholism, MDF is 96. Slight improvement in labs today compared to admission. No further bleeding since admission, hgb is normal after IVFs. CPK level was normal, lactate was elevated. CBC, CMP reviewed Allergies Allergy/AdvReac Type Severity Reaction Status Date / Time No Known Allergies Allergy Mild Unverified 05/09/22 14:38 BEE STINGS Allergy Mild UNKNOWN Uncoded 05/09/22 14:38 CODIENE AdvReac Mild NAUSEA Uncoded 05/09/22 14:38 Home Medications Medication Instructions Recorded Confirmed Type No Known Home Medications 05/09/22 05/09/22 History Patient History Medical History Alcohol abuse Anxiety Bipolar 1 disorder Cocaine use Depression PCOS (polycystic ovarian syndrome) Surgical History History of loop electrical excision procedure (LEEP) Family History Other Depression Social History Smoking Status: Current every day smoker Cigarettes Per Day: 10; Do You Dip or Chew Tobacco: No; Hx Alcohol Use: Yes Alcohol type: hard liquor Hx Substance Use: Yes Last Used Substance: Days (ago) Last Used Substance Other:: 05/02/22 Preferred Language: Swedish Communication Ability: Effective Clutch Specialist Required: No Beliefs That Will Affect Care: None Current Living Situation: Family Current Living Situation Comment: lives with sister Feels Safe at Home: No Any Concerns about Your Family Situation: Yes Would You Like to Speak to Someone About Your Situation: Yes Safety Concerns: Afraid for Self Assistive Devices: None Review of Systems Constitutional: no fever, no chills and no weight loss Eyes: as per Subjective / HPI Ear, Nose, Mouth, Throat: as per Subjective / HPI Respiratory: no dyspnea and no dyspnea on exertion Cardiovascular: no chest pain and no palpitations Gastrointestinal: as per Subjective / HPI Musculoskeletal: no joint pain and no swelling Integumentary: no rash and no lesions Neurologic: no numbness and no paresthesia Psychiatric: no depression and no anxiety Endocrine: no fatigue Hematologic / Lymphatic: no easy bleeding and no easy bruising Physical Exam Constitutional: WD/WN, vitals as above Eyes: EOM intact bilaterally Neck: normal visual inspection Respiratory: normal respiratory effort, lungs clear to auscultation Cardiovascular: RRR, no murmur, no edema Gastrointestinal (Abdomen): Inspection/Auscultation: abdomen normal to inspection; abdomen not distended Percussion/Palpation: abdomen soft; abdomen nontender and no hepatosplenomegaly Musculoskeletal: Extremities: no cyanosis Gait: normal gait Skin: no rashes, warm and dry Neurologic: moves all extremities Psychiatric: A+Ox3, euthymic affect Results & Data Vital Signs (Past 12 Hours) Vital Signs Temp Pulse Resp BP Pulse Ox O2 Del Method 05/10/22 11:38 36.7 C 74 16 103/67 99 Room Air 05/10/22 09:37 Room Air 05/10/22 06:59 36.8 C 100 H 16 108/82 98 Room Air 05/10/22 03:00 37.2 C 109 H 16 108/62 95 Room Air PG Care Time/CCT Total # of Minutes Spent Total Time Spent with Patient: Total time spent is greater than 50% in coordination of care (as documented) at patient's floor/unit and/or counseling patient: Coding Level of Care Code 02662 IN/OBS CONSULT LVL 4,60M Diagnoses Alcohol abuse F10.10 Alcoholic hepatitis K70.10
[2022-05-10] MEDS: VANCOMYCIN HCL 1,500 MG in SODIUM CHLORIDE 0.9% 500 ML IV SCH (20:56)
[2022-05-10] MEDS ORDERED: VANCOMYCIN HCL 1,500 MG in SODIUM CHLORIDE 0.9% 500 ML IV SCH (21:00)
[2022-05-11] MEDS: PIPERACILLIN/TAZOBACTAM 4.5 GM in DEXTROSE 5% 100 ML IV SCH ×2 (01:12→08:37)
[2022-05-11] MEDS ORDERED: VANCOMYCIN LEVEL ONE (04:44)
[2022-05-11] MEDS: PANTOprazole 40 MG in DEXTROSE 5% 100 ML IV SCH (06:12)
[2022-05-11 07:05] LABS: Basophils # (auto) 0.02 K/uL (0-0.2); Basophils % (auto) 0.4 %; Eosinophils % (auto) 3.5 %; Hematocrit (blood only) 37.7 % (37.0-47.0); Hemoglobin 13.1 g/dl (12.0-16.0); Immature Granulocytes # (auto) 0.07 K/uL (0.01-0.20); Immature Granulocytes % (auto) 1.2 %; Lymphocytes # (auto) 1.01 K/uL (1.2-3.4); Lymphocytes % (auto) 17.8 %; Mean Corpuscular Hgb Conc 34.7 g/dL (32.0-36.0); Mean Corpuscular Volume 89.1 fL (80.0-100.0); Mean Platelet Volume 11.3 fL (9.4-12.4); Monocytes # (auto) 0.28 K/uL (0.11-0.59); Monocytes % (auto) 4.9 %; Neutrophils % (auto) 72.2 %; Platelet Count 100 K/uL (130-400); RDW Standard Deviation 39.5 fL (36.4-46.3); Red Blood Count 4.23 M/uL (4.20-5.40); White Blood Count 5.68 K/ul (4.8-10.8)
[2022-05-11 07:26] LABS: INR 2.1 (0.9-1.1); Prothrombin Time 21.8 Seconds (9.0-12.0)
[2022-05-11 07:32] LABS: Albumin Globulin Ratio 1.8 (0.9-2); Albumin Level 2.8 gm/dl (3.4-5.0); Alkaline Phosphatase 90 U/L (34-104); Anion Gap 5 (3-11); BUN Creatinine Ratio 11.5 (10-20); Bilirubin,Total 7.4 mg/dl (0.2-1.0); Blood Urea Nitrogen 7 mg/dl (6-23); Calcium 7.3 mg/dl (8.5-10.1); Carbon Dioxide 26 mmol/L (21-32); Chloride 109 mmol/L (98-107); Creatine Kinase 34 U/L (26-192); Creatinine Clr Calc Pharmacy 173.2 ml/min; Est GFR (Non-African American) 120.8 ml/min; Globulin 1.6 gm/dl (2.5-4.0); Glucose 95 mg/dl (70-99(Fasting)); Magnesium 1.9 mg/dl (1.7-2.4); Phosphorus 1.1 mg/dl (2.5-4.9); Potassium 3.1 mmol/L (3.5-5.1); Sodium 140 mmol/L (136-145); Total Protein 4.4 gm/dl (6.0-8.3)
[2022-05-11] MEDS ORDERED: POTASSIUM PHOS 3 MMOL/1 ML INFUSION IV STA (07:51)
[2022-05-11 08:00] LABS: Alanine Aminotransferase > 2500 U/L (7-52); Aspartate Aminotransferase 1440 U/L (13-39)
[2022-05-11] MEDS ORDERED: POTASSIUM PHOSPHATE 30 MMOL in SODIUM CHLORIDE 0.9% 500 ML IV ONE (08:00)
[2022-05-11] MEDS: NSS + 20MEQ KCL 20 MEQ/1,000 ML BAG IV SCH ×2 (08:33→17:40)
[2022-05-11] MEDS: VANCOMYCIN HCL 1,500 MG in SODIUM CHLORIDE 0.9% 500 ML IV SCH (08:37)
[2022-05-11] MEDS: THIAMINE HCL 100 MG in SYRINGE 9 ML IV SCH (08:52)
[2022-05-11] MEDS: FOLIC ACID 1 MG in SYRINGE 9.8 ML IV SCH (08:53)
--- NOTE | 2022-05-11 10:47 | Gastroenterology Progress Note ---
Date of Service May 11, 2022 Assessment & Plan (1) Alcohol abuse: (2) Alcoholic hepatitis: Plan ETOH hepatitis: MDF is down to 42.4 without any obvious bleeding. INR is trending down and H&H is normal. Recs: --start Prednisolone 40 mg daily. --supportive care, trend LFTs, IVFs --strict ETOH cessation, agree with ETOH rehab --Continue Protonix 40 mg daily --Appreciate psych evaluation Admission and Anticipated Discharge Date Admission Date: May 09, 2022 Supervising Physician Co-Signing Physician Notes Agree with CHILO Neal as above Gen: Awake, Cooperative, Oriented x3, NAD Abd: Soft, NT, ND, +BS Continue current therapy and supportive care It is imperative for her to abstain from further alcohol and Drug use Subjective Patient states "I am so tired". Denies any fevers, abdominal pain, n/v, pruritus, dark urine, acholic stools, or lower extremity edema. Labs reviewed today. TB 7.4, AST 1440, ALT >2500, ALP 90. INR is trending down and was noted to be 2.1, PT 21.8. Potassium 3.1, sodium 140. Renal panel is normal. Review of Systems Constitutional: as per Subjective / HPI Gastrointestinal: as per Subjective / HPI Physical Exam Constitutional: WD/WN, vitals as above Eyes: + scleral abnormality (bilateral icterus) Neck: normal visual inspection Respiratory: normal respiratory effort, lungs clear to auscultation Cardiovascular: Rate/Rhythm: regular rate and regular rhythm Gastrointestinal (Abdomen): Inspection/Auscultation: normal bowel sounds and + significant pannus Percussion/Palpation: abdomen soft; abdomen nontender Musculoskeletal: Extremities: extremities normal to inspection Skin: warm and dry Psychiatric: A+Ox3, euthymic affect Results & Data Results & Data Vital Signs (Past 12 Hours) Vital Signs Temp Pulse Pulse Resp BP BP Pulse Ox 05/11/22 08:00 62 05/11/22 07:00 36.4 C L 74 16 115/74 97 05/11/22 03:21 36.3 C L 69 21 118/70 97 05/10/22 23:35 90 05/10/22 23:24 37.3 C 77 21 121/75 99 O2 Del Method 05/11/22 08:00 05/11/22 07:00 Room Air 03/20/23 03:21 Room Air 05/10/22 23:35 05/10/22 23:24 Room Air Diagnostic Findings Laboratory Results WBC 5.68 K/ul (4.8-10.8) 05/11/22 06:35 RBC 4.23 M/uL (4.20-5.40) 05/11/22 06:35 Hgb 13.1 g/dl (12.0-16.0) 05/11/22 06:35 Hct 37.7 % (37.0-47.0) 05/11/22 06:35 MCV 89.1 fL (80.0-100.0) 05/11/22 06:35 MCH 31.0 pg (25.0-34.0) 05/11/22 06:35 MCHC 34.7 g/dL (32.0-36.0) 05/11/22 06:35 RDW Std Deviation 39.5 fL (36.4-46.3) 05/11/22 06:35 RDW Coeff of Jess 12.0 % (11.5-14.5) 05/11/22 06:35 Plt Count 100 K/uL (130-400) L 05/11/22 06:35 MPV 11.3 fL (9.4-12.4) 05/11/22 06:35 Immature Gran % (Auto) 1.2 % 05/11/22 06:35 Neut % (Auto) 72.2 % 05/11/22 06:35 Lymph % (Auto) 17.8 % 05/11/22 06:35 [place] % (Auto) 4.9 % 05/11/22 06:35 Eos % (Auto) 3.5 % 05/11/22 06:35 Baso % (Auto) 0.4 % 05/11/22 06:35 Neut # (Auto) 4.10 K/uL (1.40-6.50) 05/11/22 06:35 Lymph # (Auto) 1.01 K/uL (1.2-3.4) L 05/11/22 06:35 [place] # (Auto) 0.28 K/uL (0.11-0.59) 05/11/22 06:35 Eos # (Auto) 0.20 K/uL (0-0.50) 05/11/22 06:35 Baso # (Auto) 0.02 K/uL (0-0.2) 05/11/22 06:35 Immature Gran # (Auto) 0.07 K/uL (0.01-0.20) 05/11/22 06:35 Toxic Vacuolation 1+ 05/10/22 01:16 Polychromasia 1+ 05/09/22 13:01 Echinocytes 2+ 05/10/22 01:16 PT 21.8 Seconds (9.0-12.0) H 05/11/22 06:35 INR 2.1 (0.9-1.1) H 05/11/22 06:35 Sodium 140 mmol/L (136-145) 05/11/22 06:35 Potassium 3.1 mmol/L (3.5-5.1) L 05/11/22 06:35 Chloride 109 mmol/L (98-107) H 05/11/22 06:35 Carbon Dioxide 26 mmol/L (21-32) 05/11/22 06:35 Anion Gap 5 (3-11) 05/11/22 06:35 BUN 7 mg/dl (6-23) 05/11/22 06:35 Creatinine 0.61 mg/dl (0.6-1.2) 05/11/22 06:35 Est Cr Clr Drug Dosing 173.2 ml/min 05/11/22 06:35 Est GFR ( Amer) 140.0 ml/min 05/11/22 06:35 Est GFR (Non-Af Amer) 120.8 ml/min 05/11/22 06:35 BUN/Creatinine Ratio 11.5 (10-20) 05/11/22 06:35 Glucose 95 mg/dl (70-99(Fasting)) 05/11/22 06:35 Lactate 5.1 mmol/L (0.4-2.0) H* 05/10/22 01:16 Calcium 7.3 mg/dl (8.5-10.1) L 05/11/22 06:35 Phosphorus 1.1 mg/dl (2.5-4.9) L* 05/11/22 06:35 Magnesium 1.9 mg/dl (1.7-2.4) 05/11/22 06:35 Total Bilirubin 7.4 mg/dl (0.2-1.0) H 05/11/22 06:35 AST 1440 U/L (13-39) H 05/11/22 06:35 ALT > 2500 U/L (7-52) H 05/11/22 06:35 Alkaline Phosphatase 90 U/L (34-104) 05/11/22 06:35 Total Creatine Kinase 34 U/L (26-192) 05/11/22 06:35 Troponin I High Sens 14.4 pg/ml (0-14) H 05/10/22 01:16 C-Reactive Protein 1.61 mg/dl (0-0.5) H 05/10/22 08:06 Total Protein 4.4 gm/dl (6.0-8.3) L D 05/11/22 06:35 Albumin 2.8 gm/dl (3.4-5.0) L 05/11/22 06:35 Globulin 1.6 gm/dl (2.5-4.0) L 05/11/22 06:35 Albumin/Globulin Ratio 1.8 (0.9-2) 05/11/22 06:35 Lipase 35 U/L (11-82) 05/09/22 13:01 Procalcitonin 16.18 ng/ml (0-0.5) H 05/09/22 14:13 HCG, Qual Negative (Negative) 05/09/22 13:01 Urine Color Dark Yellow 05/09/22 16:54 Urine Appearance Clear (Clear) 05/09/22 16:54 Urine pH 6.5 (4.5-7.5) 05/09/22 16:54 Ur Specific [place] > 1.045 (1.000-1.030) H 05/09/22 16:54 Urine Protein 3+ (Negative) H 05/09/22 16:54 Urine Glucose (UA) Negative (Negative) 05/09/22 16:54 Urine Ketones Trace (Negative) H 05/09/22 16:54 Urine Blood 2+ (Negative) H 05/09/22 16:54 Urine Nitrite Negative (Negative) 05/09/22 16:54 Urine Bilirubin 1+ (Negative) H 05/09/22 16:54 Urine Urobilinogen Negative (Negative) 05/09/22 16:54 Ur Leukocyte Esterase Trace (Negative) H 05/09/22 16:54 Urine WBC (Auto) 1-5 /hpf (0-5) 05/09/22 16:54 Urine RBC (Auto) 5-10 /hpf (0-4) H 05/09/22 16:54 U Hyaline Cast (Auto) 0 /lpf (0-5) 05/09/22 16:54 U Epithel Cells (Auto) >30 /lpf (0-5) H 05/09/22 16:54 Urine Bacteria (Auto) Negative (Negative) 05/09/22 16:54 Random Vancomycin 6.4 mcg/ml (10-20) L 05/11/22 06:35 Urine Opiates Screen Neg (Neg) 05/09/22 16:54 Ur Methadone, Qual Neg (Neg) 05/09/22 16:54 Acetaminophen 17 ug/ml (10-30) 05/09/22 14:15 Urine Barbiturates Neg (Neg) 05/09/22 16:54 Ur Phencyclidine (PCP) Neg (Neg) 05/09/22 16:54 U Amphetamin/Meth Scrn Neg (Neg) 05/09/22 16:54 MDMA (Ecstasy) Screen Neg (Neg) 05/09/22 16:54 U Benzodiazepines Scrn Neg (Neg) 05/09/22 16:54 Ur Cocaine Metabolite Pos (Neg) H 05/09/22 16:54 U Marijuana (THC) Screen Pos (Neg) H 05/09/22 16:54 Ethyl Alcohol mg/dL < 10.0 mg/dl (<10.0) 05/09/22 14:14 SARS-CoV-2, RNA, NAAT NEGATIVE (NEGATIVE) 05/09/22 15:17 Blood Type A Positive 05/09/22 14:13 Antibody Screen NEGATIVE 05/09/22 14:13 Impressions Abdomen/Pelvis CT 05/09/22 12:55 CT OF THE ABDOMEN AND PELVIS WITH CONTRAST CLINICAL HISTORY: Gi bleed, LUQ pain COMPARISON STUDY: None. TECHNIQUE: Following IV administration of 94 mL of Optiray, axial images of the abdomen and pelvis were obtained from the lung bases to the proximal femurs. Images were reviewed in the axial, sagittal, and coronal planes. IV contrast was administered without complication. Automated exposure control was utilized for the study. A dose lowering technique was utilized adhering to the principles of ALARA. CT DOSE: 1020.55 mGy.cm FINDINGS: Lung bases are unremarkable. No pneumatosis, free air or portal venous gas is present. There is hepatic steatosis. No biliary or pancreatic ductal dilatation is present. Spleen, adrenal glands, kidneys and pancreas are normal. There is no peripancreatic or pericholecystic infiltration. There is no hy dronephrosis. Subcentimeter left adrenal nodule is likely benign. The caliber and wall thickness of small and large bowel are normal. There is no evidence for a bowel obstruction. The appendix is normal. No intraluminal contrast is identified to suggest active GI bleed during this study. Intrauterine device is in place. Ovaries are unremarkable by CT. There is no lymphadenopathy. There is no ascites. There are no acute fractures. IMPRESSION: 1. No acute process within the abdomen or pelvis. 2. Hepatic steatosis. 3. Normal appendix. No bowel obstruction. No bowel wall thickening. ACT 112: Negative or not required by law. Electronically signed by: Kieran Ewing M.D. 05/09/2022 2:19 PM Portal Vein US 05/09/22 15:35 US duplex portal hepatic veins CLINICAL HISTORY: rule out thrombosis COMPARISON STUDY: CT of the abdomen and pelvis performed earlier today. TECHNIQUE: Color and duplex Doppler sonography of the major hepatic vessels was performed. FINDINGS: The main portal vein is patent with appropriately directed flow. The right and left portal veins are also patent. Hepatic veins are patent with appropriate phasicity. Splenic vein is patent. Hepatic artery is patent. IMPRESSION: Patent major hepatic vessels with appropriately directed flow. ACT 112: Negative or not required by law. Electronically signed by: Kieran Ewing M.D. 05/09/2022 5:34 PM Chest X-Ray 05/10/22 07:34 XR chest 1V portable HISTORY: Cough. r/o Pneumonia COMPARISON: Chest 11/08/2008. FINDINGS: No pneumothorax. No pleural effusions. The heart is normal in size. No focal lung consolidations to suggest a pneumonia. No evidence for pulmonary edema. IMPRESSION: No acute process. ACT 112: Negative or not required by law. Electronically signed by: Isaac Easton M.D. 05/10/2022 8:31 AM PG Care Time/CCT Total # of Minutes Spent Total Time Spent with Patient: Total time spent is greater than 50% in coordination of care (as documented) at patient's floor/unit and/or counseling patient: Coding Level of Care Code 56915 SUB INP/OBS CARE MIN Diagnoses Alcohol abuse F10.10 Alcoholic hepatitis K70.10
[2022-05-11] MEDS: prednisoLONE sod phosphate 15 MG/5 ML PO SCH (10:49)
[2022-05-11] MEDS: PANTOprazole 40 MG TAB PO SCH (10:49)
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
[2022-05-12] MEDS: NSS + 20MEQ KCL 20 MEQ/1,000 ML BAG IV SCH (00:40)
[2022-05-12 07:13] LABS: Anion Gap 4 (3-11); BUN Creatinine Ratio 12.3 (10-20); Blood Urea Nitrogen 7 mg/dl (6-23); Calcium 7.5 mg/dl (8.5-10.1); Carbon Dioxide 23 mmol/L (21-32); Chloride 112 mmol/L (98-107); Creatinine Clr Calc Pharmacy 190.4 ml/min; Est GFR (African American) 143.2 ml/min; Est GFR (Non-African American) 123.5 ml/min; Glucose 86 mg/dl (70-99(Fasting)); Potassium 3.5 mmol/L (3.5-5.1); Sodium 139 mmol/L (136-145)
[2022-05-12 07:32] LABS: Alanine Aminotransferase > 2500 U/L (7-52); Albumin Globulin Ratio 1.9 (0.9-2); Albumin Level 2.8 gm/dl (3.4-5.0); Alkaline Phosphatase 89 U/L (34-104); Aspartate Aminotransferase 279 U/L (13-39); Bilirubin,Total 9.4 mg/dl (0.2-1.0); Globulin 1.5 gm/dl (2.5-4.0); Magnesium 1.9 mg/dl (1.7-2.4); Total Protein 4.3 gm/dl (6.0-8.3)
[2022-05-12 07:34] LABS: Phosphorus 1.5 mg/dl (2.5-4.9)
[2022-05-12] MEDS ORDERED: POTASSIUM PHOS 3 MMOL/1 ML INFUSION IV STA (07:45)
[2022-05-12] MEDS ORDERED: POTASSIUM PHOSPHATE 30 MMOL in SODIUM CHLORIDE 0.9% 500 ML IV ONE (08:00)
[2022-05-12] MEDS: THIAMINE HCL 100 MG in SYRINGE 9 ML IV SCH (08:10)
[2022-05-12] MEDS: FOLIC ACID 1 MG in SYRINGE 9.8 ML IV SCH (08:10)
[2022-05-12] MEDS: prednisoLONE sod phosphate 15 MG/5 ML PO SCH (08:11)
[2022-05-12] MEDS: PANTOprazole 40 MG TAB PO SCH (08:11)
--- NOTE | 2022-05-12 09:46 | Gastroenterology Progress Note ---
Date of Service May 12, 2022 Assessment & Plan (1) Alcohol abuse: (2) Alcoholic hepatitis: Plan ETOH hepatitis: MDF is down to 42.4 without any obvious bleeding. INR is trending down and H&H is normal. Recs: --continue Prednisolone 40 mg daily. --supportive care, trend LFTs and PT/INR. --strict ETOH cessation, agree with ETOH rehab --Continue Protonix 40 mg daily --Appreciate psych evaluation Admission and Anticipated Discharge Date Admission Date: May 09, 2022 Subjective Patient reports ongoing fatigue and dark urine. No abdominal pain, pruritus, n/v, or overt GIB. TB 9.4, AST down to 279, and ALT remains >2500. Started corticosteroid therapy yesterday. Review of Systems Constitutional: as per Subjective / HPI Gastrointestinal: as per Subjective / HPI Physical Exam Constitutional: WD/WN, vitals as above Eyes: + scleral abnormality (bilateral icterus) Respiratory: normal respiratory effort, lungs clear to auscultation Cardiovascular: Rate/Rhythm: regular rate and regular rhythm Gastrointestinal (Abdomen): Inspection/Auscultation: normal bowel sounds Percussion/Palpation: abdomen soft; abdomen nontender Skin: warm and dry Results & Data Results & Data Vital Signs (Past 12 Hours) Vital Signs Temp Pulse Pulse Resp BP BP Pulse Ox 05/12/22 07:30 36.6 C 63 18 108/60 98 05/12/22 07:00 61 05/12/22 03:28 36.8 C 71 18 105/64 96 05/11/22 23:47 36.7 C 66 18 131/74 99 05/11/22 23:31 77 O2 Del Method 05/12/22 07:30 Room Air 05/12/22 07:00 05/12/22 03:28 Room Air 05/11/22 23:47 Room Air 05/11/22 23:31 Diagnostic Findings Laboratory Results WBC 5.68 K/ul (4.8-10.8) 05/11/22 06:35 RBC 4.23 M/uL (4.20-5.40) 05/11/22 06:35 Hgb 13.1 g/dl (12.0-16.0) 05/11/22 06:35 Hct 37.7 % (37.0-47.0) 05/11/22 06:35 MCV 89.1 fL (80.0-100.0) 05/11/22 06:35 MCH 31.0 pg (25.0-34.0) 05/11/22 06:35 MCHC 34.7 g/dL (32.0-36.0) 05/11/22 06:35 RDW Std Deviation 39.5 fL (36.4-46.3) 05/11/22 06:35 RDW Coeff of Jess 12.0 % (11.5-14.5) 05/11/22 06:35 Plt Count 100 K/uL (130-400) L 05/11/22 06:35 MPV 11.3 fL (9.4-12.4) 05/11/22 06:35 Immature Gran % (Auto) 1.2 % 05/11/22 06:35 Neut % (Auto) 72.2 % 05/11/22 06:35 Lymph % (Auto) 17.8 % 05/11/22 06:35 [place] % (Auto) 4.9 % 05/11/22 06:35 Eos % (Auto) 3.5 % 05/11/22 06:35 Baso % (Auto) 0.4 % 05/11/22 06:35 Neut # (Auto) 4.10 K/uL (1.40-6.50) 05/11/22 06:35 Lymph # (Auto) 1.01 K/uL (1.2-3.4) L 05/11/22 06:35 [place] # (Auto) 0.28 K/uL (0.11-0.59) 05/11/22 06:35 Eos # (Auto) 0.20 K/uL (0-0.50) 05/11/22 06:35 Baso # (Auto) 0.02 K/uL (0-0.2) 05/11/22 06:35 Immature Gran # (Auto) 0.07 K/uL (0.01-0.20) 05/11/22 06:35 Toxic Vacuolation 1+ 05/10/22 01:16 Polychromasia 1+ 05/09/22 13:01 Echinocytes 2+ 05/10/22 01:16 PT 21.8 Seconds (9.0-12.0) H 05/11/22 06:35 INR 2.1 (0.9-1.1) H 05/11/22 06:35 Sodium 139 mmol/L (136-145) 05/12/22 05:35 Potassium 3.5 mmol/L (3.5-5.1) 05/12/22 05:35 Chloride 112 mmol/L (98-107) H 05/12/22 05:35 Carbon Dioxide 23 mmol/L (21-32) 05/12/22 05:35 Anion Gap 4 (3-11) 05/12/22 05:35 BUN 7 mg/dl (6-23) 05/12/22 05:35 Creatinine 0.57 mg/dl (0.6-1.2) L 05/12/22 05:35 Est Cr Clr Drug Dosing 190.4 ml/min 05/12/22 05:35 Est GFR ( Amer) 143.2 ml/min 05/12/22 05:35 Est GFR (Non-Af Amer) 123.5 ml/min 05/12/22 05:35 BUN/Creatinine Ratio 12.3 (10-20) 05/12/22 05:35 Glucose 86 mg/dl (70-99(Fasting)) 05/12/22 05:35 Lactate 5.1 mmol/L (0.4-2.0) H* 05/10/22 01:16 Calcium 7.5 mg/dl (8.5-10.1) L 05/12/22 05:35 Phosphorus 1.5 mg/dl (2.5-4.9) L* 05/12/22 05:35 Magnesium 1.9 mg/dl (1.7-2.4) 05/12/22 05:35 Total Bilirubin 9.4 mg/dl (0.2-1.0) H 05/12/22 05:35 AST 279 U/L (13-39) H 05/12/22 05:35 ALT > 2500 U/L (7-52) H 05/12/22 05:35 Alkaline Phosphatase 89 U/L (34-104) 05/12/22 05:35 Total Creatine Kinase 34 U/L (26-192) 05/11/22 06:35 Troponin I High Sens 14.4 pg/ml (0-14) H 05/10/22 01:16 C-Reactive Protein 1.61 mg/dl (0-0.5) H 05/10/22 08:06 Total Protein 4.3 gm/dl (6.0-8.3) L 05/12/22 05:35 Albumin 2.8 gm/dl (3.4-5.0) L 05/12/22 05:35 Globulin 1.5 gm/dl (2.5-4.0) L 05/12/22 05:35 Albumin/Globulin Ratio 1.9 (0.9-2) 05/12/22 05:35 Lipase 35 U/L (11-82) 05/09/22 13:01 Procalcitonin 16.18 ng/ml (0-0.5) H 05/09/22 14:13 HCG, Qual Negative (Negative) 05/09/22 13:01 Urine Color Dark Yellow 05/09/22 16:54 Urine Appearance Clear (Clear) 05/09/22 16:54 Urine pH 6.5 (4.5-7.5) 05/09/22 16:54 Ur Specific Rigby > 1.045 (1.000-1.030) H 05/09/22 16:54 Urine Protein 3+ (Negative) H 05/09/22 16:54 Urine Glucose (UA) Negative (Negative) 05/09/22 16:54 Urine Ketones Trace (Negative) H 05/09/22 16:54 Urine Blood 2+ (Negative) H 05/09/22 16:54 Urine Nitrite Negative (Negative) 05/09/22 16:54 Urine Bilirubin 1+ (Negative) H 05/09/22 16:54 Urine Urobilinogen Negative (Negative) 05/09/22 16:54 Ur Leukocyte Esterase Trace (Negative) H 05/09/22 16:54 Urine WBC (Auto) 1-5 /hpf (0-5) 05/09/22 16:54 Urine RBC (Auto) 5-10 /hpf (0-4) H 05/09/22 16:54 U Hyaline Cast (Auto) 0 /lpf (0-5) 05/09/22 16:54 U Epithel Cells (Auto) >30 /lpf (0-5) H 05/09/22 16:54 Urine Bacteria (Auto) Negative (Negative) 05/09/22 16:54 Random Vancomycin 6.4 mcg/ml (10-20) L 05/11/22 06:35 Urine Opiates Screen Neg (Neg) 05/09/22 16:54 Ur Methadone, Qual Neg (Neg) 05/09/22 16:54 Acetaminophen 17 ug/ml (10-30) 05/09/22 14:15 Urine Barbiturates Neg (Neg) 05/09/22 16:54 Ur Phencyclidine (PCP) Neg (Neg) 05/09/22 16:54 U Amphetamin/Meth Scrn Neg (Neg) 05/09/22 16:54 MDMA (Ecstasy) Screen Neg (Neg) 05/09/22 16:54 U Benzodiazepines Scrn Neg (Neg) 05/09/22 16:54 Ur Cocaine Metabolite Pos (Neg) H 05/09/22 16:54 U Marijuana (THC) Screen Pos (Neg) H 05/09/22 16:54 Ethyl Alcohol mg/dL < 10.0 mg/dl (<10.0) 05/09/22 14:14 SARS-CoV-2, RNA, NAAT NEGATIVE (NEGATIVE) 05/09/22 15:17 Blood Type A Positive 05/09/22 14:13 Antibody Screen NEGATIVE 05/09/22 14:13 Impressions Abdomen/Pelvis CT 05/09/22 12:55 CT OF THE ABDOMEN AND PELVIS WITH CONTRAST CLINICAL HISTORY: Gi bleed, LUQ pain COMPARISON STUDY: None. TECHNIQUE: Following IV administration of 94 mL of Optiray, axial images of the abdomen and pelvis were obtained from the lung bases to the proximal femurs. Images were reviewed in the axial, sagittal, and coronal planes. IV contrast was administered without complication. Automated exposure control was utilized for the study. A dose lowering technique was utilized adhering to the principles of ALARA. CT DOSE: 1020.55 mGy.cm FINDINGS: Lung bases are unremarkable. No pneumatosis, free air or portal venous gas is present. There is hepatic steatosis. No biliary or pancreatic ductal dilatation is present. Spleen, adrenal glands, kidneys and pancreas are normal. There is no peripancreatic or pericholecystic infiltration. There is no hydronephrosis. Subcentimeter left adrenal nodule is likely benign. The caliber and wall thickness of small and large bowel are normal. There is no evidence for a bowel obstruction. The appendix is normal. No intraluminal contrast is identified to suggest active GI bleed during this study. Intrauterine device is in place. Ovaries are unremarkable by CT. There is no lymphadenopathy. There is no ascites. There are no acute fractures. IMPRESSION: 1. No acute process within the abdomen or pelvis. 2. Hepatic steatosis. 3. Normal appendix. No bowel obstruction. No bowel wall thickening. ACT 112: Negative or not required by law. Electronically signed by: Kieran Ewing M.D. 05/09/2022 2:19 PM Portal Vein US 05/09/22 15:35 US duplex portal hepatic veins CLINICAL HISTORY: rule out thrombosis COMPARISON STUDY: CT of the abdomen and pelvis performed earlier today. TECHNIQUE: Color and duplex Doppler sonography of the major hepatic vessels was performed. FINDINGS: The main portal vein is patent with appropriately directed flow. The right and left portal veins are also patent. Hepatic veins are patent with appropriate phasicity. Splenic vein is patent. Hepatic artery is patent. IMPRESSION: Patent major hepatic vessels with appropriately directed flow. ACT 112: Negative or not required by law. Electronically signed by: Kieran Ewing M.D. 05/09/2022 5:34 PM Chest X-Ray 05/10/22 07:34 XR chest 1V portable HISTORY: Cough. r/o Pneumonia COMPARISON: Chest 11/08/2008. FINDINGS: No pneumothorax. No pleural effusions. The heart is normal in size. No focal lung consolidations to suggest a pneumonia. No evidence for pulmonary edema. IMPRESSION: No acute process. ACT 112: Negative or not required by law. Electronically signed by: Isaac Easton M.D. 05/10/2022 8:31 AM PG Care Time/CCT Total # of Minutes Spent Total Time Spent with Patient: Total time spent is greater than 50% in coordination of care (as documented) at patient's floor/unit and/or counseling patient: Coding Level of Care Code 49764 SUB INP/OBS CARE 3/50MIN Diagnoses Alcohol abuse F10.10 Alcoholic hepatitis K70.10
[2022-05-12 11:57] LABS: HBSAG NON-REACTIVE (NON-REACTIVE); Hepatitis A Antibody IgM NON-REACTIVE (NON-REACTIVE); Hepatitis B Core Antibody IgM NON-REACTIVE (NON-REACTIVE)
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
[2022-05-12] MEDS: LORazepam 2 MG/1 ML VIAL IV PRN (21:26)
[2022-05-13] MEDS: MELATONIN 3 MG TAB PO PRN ×2 (00:07→20:47)
[2022-05-13 06:24] LABS: Calcium 7.7 mg/dl (8.5-10.1); Est GFR (African American) 135.8 ml/min; Est GFR (Non-African American) 117.1 ml/min; Potassium 3.4 mmol/L (3.5-5.1)
[2022-05-13 06:42] LABS: Albumin Globulin Ratio 1.7 (0.9-2); Albumin Level 2.7 gm/dl (3.4-5.0); Globulin 1.6 gm/dl (2.5-4.0); Magnesium 1.9 mg/dl (1.7-2.4); Phosphorus 2.2 mg/dl (2.5-4.9); Total Protein 4.3 gm/dl (6.0-8.3)
[2022-05-13] MEDS ORDERED: POTASSIUM PHOS 3 MMOL/1 ML INFUSION IV STA (07:59)
[2022-05-13] MEDS ORDERED: POTASSIUM PHOSPHATE 21 MMOL in SODIUM CHLORIDE 0.9% 500 ML IV ONE (08:15)
[2022-05-13] MEDS: FOLIC ACID 1 MG in SYRINGE 9.8 ML IV SCH (08:54)
[2022-05-13] MEDS: THIAMINE HCL 100 MG in SYRINGE 9 ML IV SCH (08:54)
[2022-05-13] MEDS: PANTOprazole 40 MG TAB PO SCH (08:54)
[2022-05-13] MEDS: prednisoLONE sod phosphate 15 MG/5 ML PO SCH (08:55)
[2022-05-13 09:17] LABS: Cocaine, Urine 626 ng/mL (<100); Marijuana Quant, GCMS Urine 232 ng/mL (<5)
--- NOTE | 2022-05-13 11:13 | Psychiatric Progress Note ---
Date of Service May 13, 2022 Impression / Recommendations Impression 31 yo woman with a history of polysubstance use and PTSD admitted medically for emesis and elevated LFTs consistent with alcoholic hepatitis. Diagnostically consistent with alcohol and cocaine use disorder as well as PTSD and unspecified mood disorder (difficult to determine if reported history of padmini due to concurrent substance use at the time versus BPAD, bipolar affective disorder less likely given no recent episodes of padmini after being off any psychiatric medications for a long time). Suspect likely has a combination of substance- induced mood changes as well as PTSD. Acute risk of self-harm is low given denial of SI and no longer with intoxication. Chronic risk of self-harm and harm to others is slightly increased due to substance use with substance use treatment being the most significant modifiable risk factor to reduce acute and chronic risk. Recommendation is for residential substance use treatment which she is interested in. Discussed options to restart Abilify for mood stabilization and Effexor XR versus alternative SSRI for PTSD (Effexor would require hepatic dose adjustments) versus starting with residential treatment and then evaluating need for psychiatric medications. She prefers to hold off on starting any psychiatric medications at this time which is reasonable. 05/13/2022: Medical status is starting to improve a bit and she is now interested in starting a psychiatric medication. Reviewed options and she would like to restart Abilify for mood stabilization. No hepatic adjustments necessary for this. (1) Post traumatic stress disorder (PTSD): (2) Alcohol use disorder, severe, dependence: (3) Cocaine use: Plan -Consider starting Abilify 5mg HS po and (can titrate to 10mg HS after 1-2 weeks and eventually 15mg HS if tolerated) for mood stabilization. -Residential substance use treatment/rehab once medically stable, she can explore options for this with case management -Patient is not an imminent danger to self or others and does not meet criteria for involuntary psychiatric commitment -AWSS with thiamine and folic acid -In future once on stable dose of Abilify could consider starting an SSRI such as sertraline 25mg daily for PTSD and/or prazosin 1mg HS for night terrors if BP stable -Consider starting naltrexone 50mg qd for alcohol use disorder in the future if LFTs normalize Interval History Identifying Information 31 yo woman with history of substance use, PTSD, and possible bipolar disorder admitted medically for bloody emesis and elevated LFTs. Psychiatry consulted for medication recommendations. Chief Complaint "I haven't really woken up yet". Review of Systems Notes some difficulty sleeping, appetite is stable Subjective Subjective Patient was seen & assessed and interval progress reviewed. Reports her mood continues to fluctuate related to trauma and at times feels more depressed but then often takes a nap and wakes up feeling better. Denies SI. Since her medical status is starting to improve a bit she is interested in restarting abilify for mood stabilization given history of bipolar affective disorder and to help with sleep and PTSD symptoms (reviewed off-label use for this but she found it helpful for PTSD in the past). She remains motivated for residential substance use treatment once medically stable. Physical Exam Psychiatric Orientation: alert and oriented x 3 Apperance: appropriately dressed and appropriately groomed Eye Contact: good eye contact Motor Behavior: no abnormal motor movements Speech: normal rate/rhythm/volume of speech Affect: + anxious affect Mood: + anxious mood Thought Process: linear/logical thought process Thought Content: reality based without delusions Suicidal Thoughts: denies suicidal thoughts Homicidal Thoughts: denies homicidal thoughts Hallucinations: no auditory hallucinations and no visual hallucinations Cognition: recent memory grossly intact, remote memory grossly intact, attention grossly intact and language grossly intact Estimated Intelligence: consistent with education level Insight: + fair insight Judgment: + limited judgement Vital Signs (Past 24 Hours) Last Vital Signs Temp 36.8 C 05/13/22 09:00 Pulse 69 05/13/22 09:00 Resp 14 05/13/22 09:00 BP 122/81 05/13/22 09:00 Pulse Ox 96 05/13/22 09:00 O2 Del Method Room Air 05/13/22 09:00 Results & Data ([facility]) Laboratory Results Laboratory Results - last 24 hr 05/09/22 05/09/22 05/13/22 16:28 16:54 05:35 Sodium 139 Potassium 3.4 L Chloride 111 H Carbon Dioxide 23 Anion Gap 5 BUN 6 Creatinine 0.67 Est Cr Clr Drug Dosing 162.0 Est GFR ( Amer) 135.8 Est GFR (Non-Af Amer) 117.1 BUN/Creatinine Ratio 9.0 L Glucose 111 H Calcium 7.7 L Phosphorus 2.2 L Magnesium 1.9 Total Bilirubin 8.0 H AST 103 H ALT 2441 H Alkaline Phosphatase 108 H Total Protein 4.3 L Albumin 2.7 L Globulin 1.6 L Albumin/Globulin Ratio 1.7 U Cocaine Confirm GC/MS 626 H U Marijuana THC Carboxy 232 H Drug Screen Comment SEE NOTE Hepatitis A IgM Ab NON-REACTIVE Hep Bs Antigen NON-REACTIVE Hep Bs Ag Confirmation TNP Hep B Core IgM Ab NON-REACTIVE Hepatitis C Ab (EIA) NON-REACTIVE Hep C Ab Signal/Cutoff 0.03 Current Inpatient Medications Current Inpatient Medications: Current Inpatient Medications Thiamine HCl 100 mg/ Syringe 10 mls @ 2 mls/min IV QAM [facility] Stop: 06/10/22 08:59 Last Admin: 05/13/22 08:54 Dose: 2 mls/min Folic Acid 1 mg/ Syringe 10 mls @ 5 mls/min IV QAM [facility] Stop: 06/10/22 08:59 Last Admin: 05/13/22 08:54 Dose: 5 mls/min Potassium Phosphate 21 mmol/ (Sodium Chloride) 507 mls @ 88 mls/hr IV ONE ONE Stop: 05/13/22 14:00 Last Admin: 05/13/22 08:54 Dose: 88 mls/hr Lorazepam (Lorazepam 2 Mg/1 Ml Vial) 0.5 mg IV Q8H PRN PRN Reason: Anxiety/Agitation Stop: 06/08/22 13:34 Last Admin: 05/12/22 21:26 Dose: 0.5 mg Melatonin (Melatonin 3 Mg Tab) 3 mg PO HS PRN PRN Reason: Sleep Stop: 06/11/22 23:25 Last Admin: 05/13/22 00:07 Dose: 3 mg Ondansetron HCl (Ondansetron Inj 2 Mg/Ml 2 Ml Vial) 4 mg IV Q6H PRN PRN Reason: Nausea Stop: 06/08/22 19:03 Last Admin: 05/10/22 07:35 Dose: 4 mg Pantoprazole Sodium (Pantoprazole 40 Mg Tab) 40 mg PO QAM [facility] Stop: 06/10/22 08:59 Last Admin: 05/13/22 08:54 Dose: 40 mg Prednisolone Sodium Phosphate (Prednisolone Sod Phosphate 15 Mg/5 Ml) 40 mg PO DAILY [facility] Stop: 06/10/22 10:29 Last Admin: 05/13/22 08:55 Dose: 40 mg
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
[2022-05-13] MEDS: ARIPiprazole 5 MG TAB PO SCH (20:44)
[2022-05-13] MEDS: LORazepam 2 MG/1 ML VIAL IV PRN (20:44)
[2022-05-14 06:14] LABS: Basophils # (auto) 0.02 K/uL (0-0.2); Basophils % (auto) 0.1 %; Eosinophils # (auto) 0.07 K/uL (0-0.50); Eosinophils % (auto) 0.5 %; Hematocrit (blood only) 37.2 % (37.0-47.0); Hemoglobin 12.8 g/dl (12.0-16.0); Immature Granulocytes # (auto) 0.15 K/uL (0.01-0.20); Lymphocytes # (auto) 1.48 K/uL (1.2-3.4); Mean Corpuscular Hemoglobin 31.3 pg (25.0-34.0); Mean Corpuscular Hgb Conc 34.4 g/dL (32.0-36.0); Mean Platelet Volume 11.6 fL (9.4-12.4); Monocytes # (auto) 1.24 K/uL (0.11-0.59); Monocytes % (auto) 8.4 %; Neutrophils # (auto) 11.86 K/uL (1.40-6.50); Platelet Count 115 K/uL (130-400); RDW Coefficient of Variation 13.9 % (11.5-14.5); RDW Standard Deviation 45.3 fL (36.4-46.3); Red Blood Count 4.09 M/uL (4.20-5.40); White Blood Count 14.82 K/ul (4.8-10.8)
[2022-05-14 06:27] LABS: Albumin Globulin Ratio 1.5 (0.9-2); Albumin Level 2.6 gm/dl (3.4-5.0); BUN Creatinine Ratio 9.5 (10-20); Bilirubin,Total 7.1 mg/dl (0.2-1.0); Calcium 7.7 mg/dl (8.6-10.3); Creatinine Clr Calc Pharmacy 172.3 ml/min; Est GFR (African American) 138.5 ml/min; Est GFR (Non-African American) 119.5 ml/min; Globulin 1.7 gm/dl (2.5-4.0); Magnesium 1.9 mg/dl (1.7-2.4); Phosphorus 2.8 mg/dl (2.5-4.9); Potassium 3.6 mmol/L (3.5-5.1); Total Protein 4.3 gm/dl (6.0-8.3)
[2022-05-14] MEDS: THIAMINE HCL 100 MG in SYRINGE 9 ML IV SCH (09:00)
[2022-05-14] MEDS: PANTOprazole 40 MG TAB PO SCH (09:00)
[2022-05-14] MEDS: prednisoLONE sod phosphate 15 MG/5 ML PO SCH (09:00)
[2022-05-14] MEDS: FOLIC ACID 1 MG in SYRINGE 9.8 ML IV SCH (09:00)
[2022-05-14] MEDS: ONDANSETRON INJ 2 MG/ML 2 ML VIAL IV PRN ×3 (09:00→23:20)
[2022-05-14] MEDS ORDERED: POLYETHYLENE (MIRALAX) 17 GM PACK PO PRN (09:47)
[2022-05-14] MEDS: DOCUSATE SODIUM 100 MG CAP PO SCH ×2 (12:03→21:11)
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
[2022-05-14] MEDS: ARIPiprazole 5 MG TAB PO SCH (21:11)
[2022-05-15] MEDS: ONDANSETRON INJ 2 MG/ML 2 ML VIAL IV PRN (05:34)
[2022-05-15 06:36] LABS: Hematocrit (blood only) 38.2 % (37.0-47.0); Hemoglobin 13.2 g/dl (12.0-16.0); Mean Corpuscular Hemoglobin 31.4 pg (25.0-34.0); Mean Corpuscular Hgb Conc 34.6 g/dL (32.0-36.0); Mean Platelet Volume 11.6 fL (9.4-12.4); Platelet Count 159 K/uL (130-400); RDW Coefficient of Variation 14.6 % (11.5-14.5); RDW Standard Deviation 46.6 fL (36.4-46.3); White Blood Count 15.68 K/ul (4.8-10.8)
[2022-05-15 07:05] LABS: BUN Creatinine Ratio 10.5 (10-20); Calcium 7.6 mg/dl (8.6-10.3); Creatinine Clr Calc Pharmacy 143.5 ml/min; Est GFR (African American) 121.1 ml/min; Est GFR (Non-African American) 104.5 ml/min; Potassium 3.4 mmol/L (3.5-5.1)
[2022-05-15 07:17] LABS: INR 1.5 (0.9-1.1); Prothrombin Time 15.5 Seconds (9.0-12.0)
[2022-05-15 07:34] LABS: Albumin Globulin Ratio 1.5 (0.9-2); Albumin Level 2.6 gm/dl (3.4-5.0); Bilirubin,Total 7.3 mg/dl (0.2-1.0); Globulin 1.7 gm/dl (2.5-4.0); Phosphorus 2.9 mg/dl (2.5-4.9); Total Protein 4.3 gm/dl (6.0-8.3)
[2022-05-15] MEDS ORDERED: POTASSIUM CHLORIDE CRTAB 20 MEQ TABCR PO STA (07:52)
[2022-05-15] MEDS: DOCUSATE SODIUM 100 MG CAP PO SCH ×2 (09:31→22:30)
[2022-05-15] MEDS: prednisoLONE sod phosphate 15 MG/5 ML PO SCH (09:32)
[2022-05-15] MEDS: PANTOprazole 40 MG TAB PO SCH (09:32)
[2022-05-15] MEDS: THIAMINE HCL 100 MG TAB PO SCH (09:32)
[2022-05-15] MEDS: FOLIC ACID 1 MG TAB PO SCH (09:32)
[2022-05-15] MEDS ORDERED: PROMETHAZINE HCL 25 MG TAB PO ONE (10:05)
[2022-05-15] MEDS ORDERED: LACTULOSE SYRUP 20 GM/30 ML UDC PO ONE (13:23)
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
[2022-05-15] MEDS ORDERED: LORazepam 0.5 MG TAB PO PRN (16:13)
[2022-05-15] MEDS: ARIPiprazole 5 MG TAB PO SCH (22:30)
[2022-05-15] MEDS: MELATONIN 3 MG TAB PO PRN (22:31)
[2022-05-16 07:00] LABS: BUN Creatinine Ratio 8.9 (10-20); Calcium 7.8 mg/dl (8.6-10.3); Est GFR (African American) 115.6 ml/min; Est GFR (Non-African American) 99.8 ml/min; Potassium 3.8 mmol/L (3.5-5.1)
[2022-05-16 07:20] LABS: Albumin Globulin Ratio 1.4 (0.9-2); Albumin Level 2.7 gm/dl (3.4-5.0); Bilirubin,Total 8.4 mg/dl (0.2-1.0); Globulin 1.9 gm/dl (2.5-4.0); Phosphorus 3.6 mg/dl (2.5-4.9); Total Protein 4.6 gm/dl (6.0-8.3)
[2022-05-16] MEDS: ONDANSETRON ORAL SOLN 0.8 MG/1 ML PO PRN ×2 (07:41→13:25)
[2022-05-16] MEDS: THIAMINE HCL 100 MG TAB PO SCH (09:37)
[2022-05-16] MEDS: FOLIC ACID 1 MG TAB PO SCH (09:37)
[2022-05-16] MEDS: DOCUSATE SODIUM 100 MG CAP PO SCH ×2 (09:37→20:58)
[2022-05-16] MEDS: PANTOprazole 40 MG TAB PO SCH (09:37)
[2022-05-16] MEDS: prednisoLONE sod phosphate 15 MG/5 ML PO SCH (12:09)
[2022-05-16] MEDS: PROMETHAZINE HCL 12.5 MG/10 ML UDP PO PRN ×2 (16:14→19:51)
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
[2022-05-16] MEDS: HEPARIN SOD 5,000 UNIT/0.5 ML VIAL SQ SCH (20:56)
[2022-05-16] MEDS: ARIPiprazole 5 MG TAB PO SCH (20:56)
[2022-05-17] MEDS: FOLIC ACID 1 MG TAB PO SCH (08:17)
[2022-05-17] MEDS: THIAMINE HCL 100 MG TAB PO SCH (08:18)
[2022-05-17] MEDS: HEPARIN SOD 5,000 UNIT/0.5 ML VIAL SQ SCH (08:18)
[2022-05-17] MEDS: prednisoLONE sod phosphate 15 MG/5 ML PO SCH ×2 (08:18→11:21)
[2022-05-17] MEDS: PANTOprazole 40 MG TAB PO SCH (08:18)
[2022-05-17] MEDS: DOCUSATE SODIUM 100 MG CAP PO SCH (08:18)
[2022-05-17 09:20] LABS: Anion Gap 6 (3-11); BUN Creatinine Ratio 8.8 (10-20); Blood Urea Nitrogen 8 mg/dl (6-23); Calcium 8.1 mg/dl (8.6-10.3); Carbon Dioxide 23 mmol/L (21-32); Chloride 103 mmol/L (98-107); Creatinine Clr Calc Pharmacy 119.8 ml/min; Est GFR (African American) 97.4 ml/min; Est GFR (Non-African American) 84.1 ml/min; Glucose 114 mg/dl (70-99(Fasting)); Potassium 4.2 mmol/L (3.5-5.1); Sodium 132 mmol/L (136-145)
[2022-05-17 09:24] LABS: Albumin Globulin Ratio 1.4 (0.9-2); Alkaline Phosphatase 132 U/L (34-104); Aspartate Aminotransferase 55 U/L (13-39); Bilirubin,Total 11.8 mg/dl (0.2-1.0); Globulin 2.2 gm/dl (2.5-4.0); Total Protein 5.2 gm/dl (6.0-8.3)
[2022-05-17 10:05] LABS: INR 1.4 (0.9-1.1); Prothrombin Time 14.2 Seconds (9.0-12.0)
[2022-05-17] MEDS: ONDANSETRON ORAL SOLN 0.8 MG/1 ML PO PRN (11:20)
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
[2022-05-17] MEDS ORDERED: FAMOTIDINE 20 MG TAB PO SCH (21:00)
== END 2022-05-17 14:11 | DRG 433 ==
LOC: ED 12:47 → EDINP 16:20 → SUATTDRO 16:20 → 2E 19:04 → 3E 05-15 17:59